=== PATIENT | male | born 1985 | race African-American/Black ===

== ENCOUNTER 2017-10-16 17:10 | Emergency (ER) | payer SELFPAY ==
[~2017-10-16] VITALS: Ht 188 cm; Wt 79.4 kg
[2017-10-16 17:22] VITALS: BP 142/74
[2017-10-16] MEDS ORDERED: NAPR-683 PO (17:29)
[2017-10-16] MEDS ORDERED: PENI500T PO (17:29)
[2017-10-16] MEDS ORDERED: HYDR-971 PO (17:29)
--- NOTE | 2017-10-16 17:29 | PHYS DOC ---
Adult General Chief Complaint Chief Complaint: DENTAL PROBLEM HPI HPI 32-year-old smoker male patient complaining of right upper jaw and dental pain for the last 2 days as a constant pain with radiation to his jaw that getting better with [id number] medication. Patient states he had the broken tooth. Was not able to follow-up with her dentist. Patient denies fever and chills, nausea and vomiting,dysphasia. Patient rated his pain 6/10 and doesn't want pain medication in ER. Review of Systems Review of Systems Constitutional: Denies fever or chills [] Eyes: Denies change in visual acuity, redness, or eye pain [] HENT: Denies nasal congestion or sore throat, reports dental pain [] Respiratory: Denies cough or shortness of breath [] Cardiovascular: No additional information not addressed in HPI [] GI: Denies abdominal pain, nausea, vomiting, bloody stools or diarrhea [] : Denies dysuria or hematuria [] Musculoskeletal: Denies back pain or joint pain [] Integument: Denies rash or skin lesions [] Neurologic: Denies headache, focal weakness or sensory changes [] Endocrine: Denies polyuria or polydipsia [] All other systems were reviewed and found to be within normal limits, except as documented in this note. Allergies Allergies Allergies Coded Allergies Type Severity Reaction Last Updated Verified No Known Drug Allergies 10/16/17 No Physical Exam Physical Exam Constitutional: Well developed, well nourished, mild distress, non-toxic appearance. [] HENT: Normocephalic, atraumatic, bilateral external ears normal, oropharynx moist, no oral exudates, nose normal, large cavity of right upper molar #4 , erythema and edema and tenderness without drainage of pus Eyes: PERRLA, EOMI, conjunctiva normal, no discharge. [] Neck: Normal range of motion, no tenderness, supple, no stridor. [] Cardiovascular:Heart rate regular rhythm, no murmur [] Lungs & Thorax: Bilateral breath sounds clear to auscultation [] Neurologic: Alert and oriented X 3, normal motor function, normal sensory function, no focal deficits noted. [] Psychologic: Affect normal, judgement normal, mood normal. [] EKG EKG [] Radiology/Procedures Radiology/Procedures [] Course & Med Decision Making Course & Med Decision Making discharge: I've spoken with the patient and/or caregivers. I've explained the patient's condition, diagnosis and treatment plan based on information available to me at this time. I've answered the patient's and/or caregivers questions and addressed any concerns. The patient and/or caregivers have a good understanding the patient's diagnosis, condition and treatment plan as can be expected at this point. Vital signs have been stabilized. The patient's condition is stable for discharge from the emergency department. The patient will pursue further outpatient evaluation with her primary care provider or other designated consulting physician as outlined in the discharge instructions. Patient and/or caregivers are agreeable to this plan of care and follow-up instructions have been explained in detail. The patient and/or caregivers have received these instructions in written format and expressed understanding of these discharge instructions. The patient and her caregivers are aware that if any significant change in condition or worsening of symptoms should prompt him to immediately return to this of the closest emergency department. If an emergent department is not readily available I would encourage him to call 911. Fran Disclaimer Fran Disclaimer This electronic medical record was generated, in whole or in part, using a voice recognition dictation system. Departure Departure: Impression: Primary Impression: Dental abscess Additional Impressions: Tobacco abuse Tobacco abuse counseling Disposition: HOME, SELF-CARE (At 1726) Condition: STABLE Referrals: PCP,NO (PCP) Patient Instructions: Dental Abscess, Dental Pain, Smoking Cessation Additional Instructions: Follow-up with a dentist in 5-7 days Return to ER if not getting better Scripts Hydrocodone Bit/Acetaminophen (NORCO 5-325 TABLET) 1 Each Tablet 1 TAB PO PRN Q6HRS Y for PAIN, #10 TAB 0 Refills Prov: ARABELLA WALTON MD 10/16/17 Naproxen (NAPROSYN) 500 Mg Tablet 1 TAB PO BID, #20 TAB 1 Refill Prov: ARABELLA WALTON MD 10/16/17 Penicillin V Potassium (PENICILLIN V POTASSIUM) 500 Mg Tablet 1 TAB PO TID, #30 TAB Prov: ARABELLA WALTON MD 10/16/17 Problem Qualifiers ARABELLA WALTON MD Oct 16, 2017 17:29
== END 2017-10-16 17:42 | disposition home or self-care (01) ==
LOC: ER 17:10
DX: K04.7 Periapical abscess without sinus (principal); F17.200 Nicotine dependence, unspecified, uncomplicated; Z71.6 Tobacco abuse counseling
CPT/HCPCS: 99283

== ENCOUNTER 2018-04-17 03:27 | Emergency (ER) | payer SELFPAY ==
[~2018-04-17] VITALS: Ht 188 cm; Wt 77.1 kg
[~2018-04-17 03:27] MED LIST: HYDR-971 PO; NAPR-683 PO; PENI500T PO
[2018-04-17 03:40] VITALS: BP 125/71
[2018-04-17] MEDS ORDERED: HYDROcodone/APAP 5/325MG 1 TAB TABLET PO ONE (04:00)
[2018-04-17] MEDS ORDERED: SMZ/TMP 800/160MG TABLET. PO ONE (04:00)
[2018-04-17] MEDS ORDERED: HYDR-971 PO (04:04)
[2018-04-17] MEDS ORDERED: SULF1TAB24 PO (04:04)
--- NOTE | 2018-04-17 04:12 | ED.ADGEN ---
Past History Past Medical History: No Pertinent History Past Surgical History: No Surgical History Additional Smoking Information: PACK/DAY Alcohol Use: Occasionally Drug Use: Marijuana Social History Narrative: STATES LAST SMOKE MARIJUANA,"FEW HOURS AGO". Adult General Chief Complaint Chief Complaint Facial swelling HPI HPI Patient is a 32-year-old -Polish male with history of ingrown hairs his ibarra region who presents with soft tissue swelling me his chin. Patient has a soft tender indurated early soft tissue abscess beneath his chin. It is proximally 2 cm in circumference and nonfluctuant and nondraining. No surrounding cellulitis. No fevers chills, nausea vomiting or sweats. No painful or difficulty swallowing. No history of MRSA or diabetes. No other acute symptoms or complaints. Patient has not been evaluated for this condition prior to today's ED visit.[] Review of Systems Review of Systems Review symptoms as per history of present illness. All other review symptoms are negative. All other systems were reviewed and found to be within normal limits, except as documented in this note. Current Medications Current Medications Current Medications Medications (Trade) Dose Ordered Sig/Vick Start Time Stop Time Status Last Admin Dose Admin Acetaminophen/ Hydrocodone Bitart (Lortab 5/325) 1 tab 1X ONCE 04/17/18 04:00 04/17/18 04:01 UNV Trimethoprim/ Sulfamethoxazole (Bactrim Ds) 1 tab 1X ONCE 04/17/18 04:00 04/17/18 04:01 UNV Allergies Allergies Allergies Coded Allergies Type Severity Reaction Last Updated Verified No Known Drug Allergies 04/17/18 No Physical Exam Physical Exam Constitutional: Well developed, well nourished, no acute distress, non-toxic appearance. [] HENT: Normocephalic, atraumatic, bilateral external ears normal, oropharynx moist, no oral lesions, no nuchal swelling, tenderness swelling induration with 2 cm a minor early soft tissue soft tissue abscess inferior to chin, no fluctuance drainage, surrounding erythema. Nose normal. [] Eyes: PERRLA, EOMI, conjunctiva normal, no discharge. [] Neck: Normal range of motion, no tenderness, supple, no stridor. [] Cardiovascular:Heart rate regular rhythm, no murmur [] Lungs & Thorax: Bilateral breath sounds clear to auscultation []derness. [] Extremities: No tenderness, no cyanosis, no clubbing, ROM intact, no edema. [] Neurologic: Alert and oriented X 3, normal motor function, normal sensory function, no focal deficits noted. [] Psychologic: Affect normal, judgement normal, mood normal. [] Current Patient Data Vital Signs Vital Signs Date Time Temp Pulse Resp B/P (MAP) Pulse Ox O2 Delivery O2 Flow Rate FiO2 04/17/18 03:40 98.3 58 16 Room Air EKG EKG [] Radiology/Procedures Radiology/Procedures [] Course & Med Decision Making Course & Med Decision Making Pertinent Labs and Imaging studies reviewed. (See chart for details) [Early soft tissue abscess of submandibular region. Incision and drainage currently not indicated. Home care, return to ED instructions discussed in detail. Patient agrees to return to 3 days for reevaluation or sooner if abscess worsens.] Final Impression Final Impression [ 1 soft tissue abscess] Dragon Disclaimer Dragon Disclaimer This electronic medical record was generated, in whole or in part, using a voice recognition dictation system. AIME PANCHAL DO Apr 17, 2018 04:12
== END 2018-04-17 04:15 | disposition home or self-care (01) ==
LOC: ER 03:27
DX: K12.2 Cellulitis and abscess of mouth (principal); F17.210 Nicotine dependence, cigarettes, uncomplicated
CPT/HCPCS: 99283

== ENCOUNTER 2019-01-28 13:47 | Emergency (ER) | payer SELFPAY ==
[~2019-01-28 13:47] MED LIST changes: +HYDR-3165 PO; -HYDR-971 PO; +SULF1TAB24 PO
[2019-01-28 13:55] VITALS: BP 147/68
[2019-01-28] MEDS ORDERED: PRED20TA PO (14:10)
--- NOTE | 2019-01-28 14:10 | PHYS DOC ---
Past History Past Medical History: No Pertinent History Past Surgical History: No Surgical History Alcohol Use: None Drug Use: None Adult General Chief Complaint Chief Complaint: SKIN RASH/ABSCESS HPI HPI Patient is a 33-year-old male with a rash on both arms. He states he's been working outside in some weeds and is concerned he got into poison lizbeth. He states the rash is itchy. He also states it's up around his eyes. He denies any lip or tongue swelling. He denies any difficulty breathing.[] Review of Systems Review of Systems Constitutional: Denies fever or chills [] Eyes: Denies change in visual acuity, redness, or eye pain [] HENT: Denies nasal congestion or sore throat [] Respiratory: Denies cough or shortness of breath [] Cardiovascular: No additional information not addressed in HPI [] GI: Denies abdominal pain, nausea, vomiting, bloody stools or diarrhea [] : Denies dysuria or hematuria [] Musculoskeletal: Denies back pain or joint pain [] Integument: Per history of present illness[] Neurologic: Denies headache, focal weakness or sensory changes [] Endocrine: Denies polyuria or polydipsia [] All other systems were reviewed and found to be within normal limits, except as documented in this note. Allergies Allergies Allergies Coded Allergies Type Severity Reaction Last Updated Verified No Known Drug Allergies 04/17/18 No Physical Exam Physical Exam Constitutional: Well developed, well nourished, no acute distress, non-toxic appearance. [] HENT: Normocephalic, atraumatic, bilateral external ears normal, oropharynx moist, no oral exudates, nose normal. [] Eyes: PERRLA, EOMI, conjunctiva normal, no discharge. [] Neck: Normal range of motion, no tenderness, supple, no stridor. [] Cardiovascular:Heart rate regular rhythm, no murmur [] Lungs & Thorax: Bilateral breath sounds clear to auscultation [] Abdomen: Bowel sounds normal, soft, no tenderness, no masses, no pulsatile masses. [] Skin: Faint red erythematous slightly vesicular rash consistent with contact dermatitis to both arms and around the left eye. [] Back: No tenderness, no CVA tenderness. [] Extremities: No tenderness, no cyanosis, no clubbing, ROM intact, no edema. [] Neurologic: Alert and oriented X 3, normal motor function, normal sensory function, no focal deficits noted. [] Psychologic: Affect normal, judgement normal, mood normal. [] Current Patient Data Vital Signs Vital Signs Date Time Temp Pulse Resp B/P (MAP) Pulse Ox O2 Delivery O2 Flow Rate FiO2 01/28/19 13:55 98.4 76 18 97 Room Air EKG EKG [] Radiology/Procedures Radiology/Procedures [] Course & Med Decision Making Course & Med Decision Making Pertinent Labs and Imaging studies reviewed. (See chart for details) [] Dragon Disclaimer Dragon Disclaimer This electronic medical record was generated, in whole or in part, using a voice recognition dictation system. Departure Departure: Impression: Primary Impression: Poison lizbeth dermatitis Disposition: HOME, SELF-CARE Condition: STABLE Referrals: PCP,NO (PCP) Patient Instructions: Poison Lizbeth Additional Instructions: Take medication as directed. Return to emergency department with any new or concerning symptoms Scripts Prednisone (PREDNISONE) 20 Mg Tablet 3 TAB PO AFTRNOON for poison lizbeth, #15 TAB Prov: AYE DUBOSE DO 01/28/19 AYE DUBOSE DO Jan 28, 2019 14:10
[2019-01-28] MEDS ORDERED: predniSONE 20 MG TABLET PO ONE (14:30)
== END 2019-01-28 14:16 | disposition home or self-care (01) ==
LOC: ER 13:47
DX: L23.7 Allergic contact dermatitis due to plants, except food (principal)
CPT/HCPCS: 99283

== ENCOUNTER 2019-09-26 23:46 | Emergency (ER) | payer SELFPAY ==
[~2019-09-26] VITALS: Ht 188 cm; Wt 92.9 kg
[~2019-09-26 23:46] MED LIST changes: +PRED20TA PO
--- NOTE | 2019-09-26 23:53 | PHYS DOC ---
Past History Past Medical History: No Pertinent History, Anxiety Past Surgical History: No Surgical History Alcohol Use: None Drug Use: None Adult General Chief Complaint Chief Complaint: ..." I was just sitting around watching Game of Thrones.. and got this bad chest... here on Lt.... " [facility] HPI Patient is a 34 year old male who presents with above hx and complaints of severe chest pain. Chest pain is on left-sided chest. Does seem to have a pleuritic component. Patient denies any trauma. Patient denies any history of pulmonary embolisms or DVT. Patient with family members. Patient denies any recent fever or cough. Does smoke marijuana and tobacco. Patient denies previous cardiac history. Review of Systems Review of Systems Constitutional: Denies fever or chills [] Eyes: Denies change in visual acuity, redness, or eye pain [] HENT: Denies nasal congestion or sore throat [] Respiratory: Denies cough or shortness of breath [] Cardiovascular: No additional information not addressed in HPI [] GI: Denies abdominal pain, nausea, vomiting, bloody stools or diarrhea [] : Denies dysuria or hematuria [] Musculoskeletal: Denies back pain or joint pain [] Integument: Denies rash or skin lesions [] Neurologic: Denies headache, focal weakness or sensory changes [] Endocrine: Denies polyuria or polydipsia [] All other systems were reviewed and found to be within normal limits, except as documented in this note. Family History Family History Noncontributory Current Medications Current Medications See nursing for home meds Allergies Allergies Allergies Coded Allergies Type Severity Reaction Last Updated Verified No Known Drug Allergies 04/17/18 No Physical Exam Physical Exam Constitutional: , moderate acute distress, non-toxic appearance. [] HENT: Normocephalic, atraumatic, bilateral external ears normal, oropharynx moist, no oral exudates, nose normal. [] Eyes: PERRLA, EOMI, conjunctiva normal, no discharge. [] Neck: Normal range of motion, no tenderness, supple, no stridor. [] Cardiovascular: Bradycardia Heart rate regular rhythm, no murmur [] Lungs & Thorax: Bilateral breath sounds equal with scattered wheezes auscultation [] Abdomen: Bowel sounds normal, soft, no tenderness, no masses, no pulsatile masses. [] Skin: Warm, dry, no erythema, no rash. [] Back: No tenderness, no CVA tenderness. [] Extremities: No tenderness, no cyanosis, no clubbing, ROM intact, no edema. [No cording appreciated in legs. Neurologic: Alert and oriented X 3, normal motor function, normal sensory function, no focal deficits noted. [] Psychologic: Affect normal, judgement normal, mood normal. [] EKG EKG My interpretation EKG shows a sinus bradycardia at 54 bpm with nonspecific contour abnormalities anterior lateral leads. Does appear to have some J-point elevation.[] Time 0007 Repeat EKG at 31 hours shows no acute interval change.-Bradycardia at 50 bpm Radiology/Procedures Radiology/Procedures [][place] [address] IMAGING REPORT Signed PATIENT: ADELAIDA CABRAL ACCOUNT: [id number] : 1985 LOCATION: ER AGE: 34 SEX: M EXAM STATUS: REG ER ORD. PHYSICIAN: ERNESTO UMANA MD REASON: cp PROCEDURE: CHEST PA & LATERAL INDICATION: Chest pain COMPARISON: November 2015 FINDINGS: 2 view of chest obtained. Cardiac silhouette is unremarkable. The left perihilar region there is a nodular opacity measuring approximately 13 mm. Definite new region of focal airspace consolidation isn't seen IMPRESSION: * No definite new region of focal airspace consolidation. * The left perihilar region there is a nodular opacity identified. Could be secondary to overlap of structures but it may be helpful to obtain a nonemergent follow-up to ensure this does not persist to exclude a pulmonary nodule. Electronically signed by: Jose Robbins MD (09/27/2019 1:01 AM) [id number] DICTATED AND SIGNED BY: JOSE ROBBINS MD DATE: 09/27/19 0101 CC: ERNESTO UMANA MD; PCP,NO ~ Course & Med Decision Making Course & Med Decision Making Pertinent Labs and Imaging studies reviewed. (See chart for details) Patient at 2:[address] of chest and wait for repeat troponin findings. Patient advised he could return at any time to complete his work up.. Patient encouraged to stop smoking. Patient encouraged follow-up primary care. Patient take a daily aspirin. Patient take Tylenol or Profen pain. Patient consider outpatient cardiology consult. Patient advised he return anytime to complete his workup. Patient insistent on immediate discharge. Pt informed he had an abnormal EKG and begged pt. to consider repeat Trop and CT. Pt. refused. Did agree to allow time for us to repeat the EKG, with showed a Bradycardia of 50. Impression: 1. Chest Pain 2. Tobaccos and Marijuana use 3. Pulmonary Nodule? 4. Bradycardia with suspect ST J-point elevation [] Dragon Disclaimer Dragon Disclaimer This electronic medical record was generated, in whole or in part, using a voice recognition dictation system. Departure Departure: Disposition: 01 HOME/RESIDENCE PRIOR TO ADM Condition: STABLE Referrals: PCP,NO (PCP) Fran Disclaimer This chart was dictated in whole or in part using Voice Recognition software in a busy, high-work load, and often noisy Emergency Department environment. It may contain unintended and wholly unrecognized errors or omissions. ERNESTO UMANA MD Sep 26, 2019 23:53
[2019-09-27] MEDS ORDERED: IV RINGERS SOLUTION,LACTATED 1,000 ML IV SCH (00:08)
[2019-09-27] MEDS ORDERED: KETOROLAC 30 MG/ML VIAL. IVP ONE (00:15)
[2019-09-27] MEDS ORDERED: ASPIRIN CHEWABLE 81 MG TABLET. PO ONE (00:15)
[2019-09-27] MEDS ORDERED: ENOXAPARIN ** NOTE DOSE ** SYRINGE SQ ONE (00:30)
[2019-09-27 00:54] LABS: BASO # 0.1 x10^3/uL (0.0-0.2); BASO % 1 % (0-3); EOS # 0.3 x10^3/uL (0.0-0.7); EOS % 3 % (0-3); HEMATOCRIT 43.7 % (39.0-53.0); HEMOGLOBIN 14.7 g/dL (13.0-17.5); LYMPH # 3.1 x10^3/uL (1.0-4.8); LYMPH % 38 % (24-48); MEAN CORPUSCULAR HEMOGLOBIN 31 pg (25-35); MEAN CORPUSCULAR HGB CONC 34 g/dL (31-37); MEAN CORPUSCULAR VOLUME 93 fL (79-100); MONO # 0.6 x10^3/uL (0.0-1.1); MONO % 7 % (0-9); NEUT # 4.3 x10^3uL (1.8-7.7); NEUT % 51 % (31-73); PLATELET COUNT 219 x10^3/uL (140-400); RED CELL DISTRIBUTION WIDTH 14.1 % (11.5-14.5); WHITE BLOOD COUNT 8.3 x10^3/uL (4.0-11.0)
--- NOTE | 2019-09-27 01:04 | RAD ---
INDICATION: Chest pain COMPARISON: November 2015 FINDINGS: 2 view of chest obtained. Cardiac silhouette is unremarkable. The left perihilar region there is a nodular opacity measuring approximately 13 mm. Definite new region of focal airspace consolidation isn't seen IMPRESSION: * No definite new region of focal airspace consolidation. * The left perihilar region there is a nodular opacity identified. Could be secondary to overlap of structures but it may be helpful to obtain a nonemergent follow-up to ensure this does not persist to exclude a pulmonary nodule. Electronically signed by: Victor Manuel Robbins MD (09/27/2019 1:01 AM) [id number]
[2019-09-27 01:08] LABS: CALCIUM 9.3 mg/dL (8.5-10.1); CREATININE 1.2 mg/dL (0.7-1.3); GFR 83.9
[2019-09-27 01:21] LABS: ALBUMIN 4.1 g/dL (3.4-5.0); DIRECT BILIRUBIN 0.1 mg/dL (0.0-0.2); TOTAL BILIRUBIN 0.6 mg/dL (0.2-1.0); TOTAL PROTEIN 7.5 g/dL (6.4-8.2)
[2019-09-27 01:22] LABS: BACTERIA,URINE 0 /HPF (0-FEW); BILIRUBIN,URINE NEG (NEG); CLARITY,URINE CLEAR; COLOR,URINE YELLOW; GLUCOSE,URINE NEG (NEG); NITRITE,URINE NEG (NEG); RBC,URINE 0 /HPF (0-2); UROBILINOGEN,URINE 0.2 mg/dL (0.2 mg/dL); WBC,URINE OCC /HPF (0-4)
[2019-09-27 01:30] LABS: BARBITURATES NEG (NEG); BENZODIAZEPINES NEG (NEG); CANNABINOIDS POS (NEG); COCAINE NEG (NEG); METHADONE NEG (NEG); OPIATES NEG (NEG); PHENCYCLIDINE NEG (NEG)
[2019-09-27 01:31] LABS: AMPHETAMINE/METHAMPHETAMINE NEG (NEG)
[2019-09-27 01:52] VITALS: BP 120/46
[2019-09-27] MEDS ORDERED: CONTRAST GIVEN MC PRN (02:15)
[2019-09-27] MEDS ORDERED: IOHEXOL 350 MG/ML 100 ML VIAL. IV ONE (02:30)
--- NOTE | 2019-09-27 02:39 | EKG ---
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
--- NOTE | 2019-09-27 02:39 | EKG ---
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
[2019-09-27 14:41] LABS: THYROID STIM HORMONE (TSH) 1.453 uIU/mL (0.358-3.740)
== END 2019-09-27 02:41 | disposition home or self-care (01) ==
LOC: ER 23:46
DX: R07.89 Other chest pain (principal); R00.1 Bradycardia, unspecified; Z86.73 Personal history of transient ischemic attack (TIA), and cerebral infarction without residual deficits
CPT/HCPCS: 36415; 71046; 80048; 80061; 80076; 80307; 81001; 82550; 83690; 83735; 83880; 84443; 84484; 85025; 85379; 85610; 85730; 93005; 96372; 96374; 99285; J1650; J1885; J7120; Q9967

== ENCOUNTER 2020-01-23 15:22 | Emergency (ER) | payer SELFPAY ==
[~2020-01-23] VITALS: Ht 188 cm; Wt 91.6 kg
[2020-01-23] MEDS ORDERED: ORPH-16 PO (16:15)
[2020-01-23] MEDS ORDERED: IBUPROFEN 600 MG TABLET. PO ONE (16:15)
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
[2020-01-23 16:40] VITALS: BP 120/70
== END 2020-01-23 16:40 | disposition home or self-care (01) ==
LOC: ER 15:22
DX: S16.1XXA Strain of muscle, fascia and tendon at neck level, initial encounter (principal); R51 Headache; M54.9 Dorsalgia, unspecified; V53.5XXA Driver of pick-up truck or van injured in collision with car, pick-up truck or van in traffic accident, initial encounter; Y93.I9 Activity, other involving external motion; Y92.488 Other paved roadways as the place of occurrence of the external cause; Y99.8 Other external cause status
CPT/HCPCS: 99283

== ENCOUNTER 2020-03-04 15:51 | Emergency (ER) | payer SELFPAY ==
[~2020-03-04] VITALS: Ht 188 cm; Wt 87.1 kg
[2020-03-04 15:51] VITALS: BP 129/83
[~2020-03-04 15:51] MED LIST changes: +ORPH-16 PO
[2020-03-04] MEDS ORDERED: [UNRECOGNIZED DRUG - CODE] AS (17:51)
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
== END 2020-03-04 17:54 | disposition home or self-care (01) ==
LOC: ER 15:51
DX: H61.21 Impacted cerumen, right ear (principal); F41.9 Anxiety disorder, unspecified; F17.210 Nicotine dependence, cigarettes, uncomplicated
CPT/HCPCS: 69209; 99282

== ENCOUNTER 2020-03-07 21:40 | Emergency (ER) | payer SELFPAY ==
[~2020-03-07] VITALS: Ht 188 cm; Wt 87.1 kg
[2020-03-07 21:40] VITALS: BP 137/74
[~2020-03-07 21:40] MED LIST changes: +[UNRECOGNIZED DRUG - CODE] AS
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
[2020-03-08] MEDS ORDERED: NEOMYCIN/POLYMYXIN/HC OTIC SUSPENSION 10ML BOTTLE. AU ONE (01:00)
== END 2020-03-08 00:39 | disposition home or self-care (01) ==
LOC: ER 21:40
DX: S00.412A Abrasion of left ear, initial encounter (principal); S00.411A Abrasion of right ear, initial encounter; H61.22 Impacted cerumen, left ear; X58.XXXA Exposure to other specified factors, initial encounter; Y93.89 Activity, other specified; Y92.89 Other specified places as the place of occurrence of the external cause; Y99.8 Other external cause status
CPT/HCPCS: 69209; 99282

== ENCOUNTER 2021-08-06 17:08 | Emergency (ER) | payer SELFPAY ==
[~2021-08-06] VITALS: Ht 185.4 cm; Wt 84.0 kg
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
[2021-08-06] MEDS ORDERED: CIPR7.5D7 OT (17:44)
[2021-08-06 17:50] VITALS: BP 122/74
== END 2021-08-06 17:52 | disposition home or self-care (01) ==
LOC: ER 17:08
DX: H60.391 Other infective otitis externa, right ear (principal); F41.9 Anxiety disorder, unspecified; F17.210 Nicotine dependence, cigarettes, uncomplicated
CPT/HCPCS: 99283